=== PATIENT | female | born 1935 | race Caucasian/White ===

== ENCOUNTER 2017-07-19 11:15 | Emergency (ER) | payer MEDICARE, OTHER ==
[2017-07-19] MEDS ORDERED: Sodium Chloride 0.9% 1,000 ML IV ONE (11:30)
--- NOTE | 2017-07-19 11:37 | EDM.PDOC ---
ED HPI GENERAL MEDICAL PROBLEM - General Chief Complaint: Neurological Problem Stated Complaint: weakness Time Seen by Provider: 07/19/17 11:28 Source of Information: Reports: Patient History Limitations: Reports: No Limitations - History of Present Illness INITIAL COMMENTS - FREE TEXT/NARRATIVE: HISTORY AND PHYSICAL: History of present illness: Patient is an 82-year-old female who presents to the emergency room today by ambulance with complaints of dizziness. She states she was using her walker and started to become dizzy as she stood up, states she leaned over to grab onto something and fell onto her knees landing on the floor. She states her was unable to help her to her feet and therefore he called an ambulance for assistance. Patient states she has had dizziness intermittently for "a long time ". Symptoms occur as she is ambulating and subside when she is sitting still. She denies any chest pain, shortness of breath, near-syncope or syncope. Denies any fever or chills. Denies any palpitations, diaphoresis, abdominal pain, nausea, vomiting or diarrhea. Reports that she did not hit her head and currently has no extremity pain. Cervical spine and back were palpated without any discomfort. States she currently has no complaints of "but if I know if I get up I will be dizzy again". Review of systems: As per history of present illness and below otherwise all systems reviewed and negative. Past medical history: As per history of present illness and as reviewed below otherwise noncontributory. Surgical history: As per history of present illness and as reviewed below otherwise noncontributory. Social history: No reported history of drug or alcohol abuse. Family history: As per history of present illness and as reviewed below otherwise noncontributory. Physical exam: General: Nontoxic appearing 82-year-old female. Able to speak in full sentences without shortness of breath. Alert and oriented. HEENT: Atraumatic, normocephalic, pupils reactive, negative for conjunctival pallor or scleral icterus, unable to visualize the tympanic membranes due to cerumen, mucous membranes moist, throat clear, neck supple, nontender, trachea midline. No nystagmus noted. Lungs: Slightly diminished otherwise clear to auscultation, breath sounds equal bilaterally, chest nontender. Heart: S1S2, regular rate and rhythm Abdomen: Soft, nondistended, nontender. Negative for masses or hepatosplenomegaly. Negative for costovertebral tenderness. Pelvis: Stable nontender. Genitourinary: Deferred. Rectal: Deferred. Extremities: Moves all per self without difficulty, all were palpated without tenderness, negative for cords or calf pain. Neurovascular unremarkable. Neuro: Awake, alert, oriented. Cranial nerves II through XII unremarkable. Cerebellum unremarkable. Motor and sensory unremarkable throughout. Exam nonfocal. Patient is currently resting on the cot with her eyes closed, breathes easy. Blood pressure went from 200/90 and is now 153/76. Orthostatic vital signs were reviewed by me. States she still feels somewhat dizzy when ambulating. Patient was up ambulating to the bathroom after receiving her IV fluids. Patient reports that she does feel somewhat improved at this time. All her diagnostic results were reviewed with her. It does appear that she has a UTI, I will treat her with antibiotics. Did encourage her to increase her oral fluids as this may help with her dizziness. Has ear talking about her discharge she mentioned that she had a "tick bite "approximately 3-4 months ago. She states " I wonder if I could have Lyme disease ". I did encourage her to follow-up with her doctor, Dr. Fowler, for follow-up on this as she is unsure of timeframe or if she was actually bitten. Discharge was reviewed and patient is agreeable to plan of care. Denies any further questions at this time. Her is able to drive her home today. Diagnostics: CBC, CMP, troponin, EKG, one view chest, head CT, orthostatic vital signs Therapeutics: IV fluid Impression: Dizziness Urinary tract infection Plan: 1. Please take your antibiotic as prescribed. Increase your fluid intake to prevent dehydration 2. Please mention your concerns of Lyme disease to your primary care provider. 3. Follow-up with your primary care provider in the next 1-2 days. Return to the ED as needed and as discussed Definitive disposition and diagnosis as appropriate pending reevaluation and review of above. Onset: Today Duration: Chronic - Related Data Allergies Allergy/AdvReac Type Severity Reaction Status Date / Time diphenhydramine AdvReac stomach Verified 07/19/17 11:29 [From Benadryl] cramps Home Meds: Home Meds Furosemide 40 mg PO DAILY 01/14/15 [History] Insulin Aspart [NovoLOG] 6 unit SQ ACBREAKFAST 01/14/15 [History] Insulin Aspart [Novolog Flexpen] 8 units SQ ACLUNCH 01/14/15 [History] Insulin Aspart [Novolog Flexpen] 16 units SQ ACDINNER 01/14/15 [History] Insulin Glarg,Human.Rec.Analog [Lantus Solostar] 22 units SQ BEDTIME 01/14/15 [ History] Lisinopril 15 mg PO DAILY 01/14/15 [History] Simvastatin [Zocor] 10 mg PO BEDTIME 01/14/15 [History] Aspirin [Halfprin] 81 mg PO MOWEFR 01/15/15 [History] Levothyroxine Sodium [Synthroid] 100 mcg PO ACBRK 01/15/15 [History] Hydrocodone/Acetaminophen [[place] 5-325 Tablet] 1 each PO Q8H PRN #20 tablet [Rx] Levofloxacin [Levaquin] 500 mg PO Q24H #5 tablet 01/17/15 [Rx] Past Medical History Cardiovascular History: Reports: None Respiratory History: Reports: Asthma, COPD Genitourinary History: Reports: None CARDIAC SURGEON History: Reports: None Musculoskeletal History: Reports: None Psychiatric History: Reports: None Endocrine/Metabolic History: Reports: Diabetes, Type II Dermatologic History: Reports: None - Infectious Disease History Infectious Disease History: Reports: Shingles - Past Surgical History Cardiovascular Surgical History: Reports: None GI Surgical History: Reports: Cholecystectomy Female Surgical History: Reports: None Dermatological Surgical History: Reports: None Social & Family History - Tobacco Use Smoking Status *Q: Current Every Day Smoker Years of Tobacco use: 65 Packs/Tins Daily: 0.5 Second Hand Smoke Exposure: No - Alcohol Use Days Per Week of Alcohol Use: 0 - Recreational Drug Use Recreational Drug Use: No ED ROS GENERAL - Review of Systems Review Of Systems: ROS reveals no pertinent complaints other than HPI. Constitutional: Denies: Fever, Chills, Diaphoresis, Weight Loss Respiratory: Denies: Shortness of Breath Cardiovascular: Denies: Chest Pain, Lightheadedness GI/Abdominal: Denies: Abdominal Pain : Denies: Dysuria Musculoskeletal: Denies: Neck Pain Skin: Denies: Cyanosis, Pallor, Diaphoresis Neurological: Reports: Dizziness. Denies: Confusion, Headache, Seizure, Syncope Psychiatric: Denies: Agitation, Anxiety Hematologic/Lymphatic: Denies: Easy Bleeding, Easy Bruising ED EXAM, GENERAL - Physical Exam Exam: See Below Course - Vital Signs Last Recorded V/S: Last Vital Signs Temp 36.4 C 07/19/17 11:17 Pulse 99 07/19/17 13:52 Resp 20 07/19/17 13:52 BP 157/71 H 07/19/17 13:52 Pulse Ox 95 07/19/17 13:52 Orthostatic Blood Pressure [ 162/74 Standing] Orthostatic Blood Pressure [ 166/75 Sitting] Orthostatic Blood Pressure [ 165/74 Supine] - Orders/Labs/Meds Orders: Active Orders 24 hr Category Date Time Status EKG Documentation Completion [RC] STAT Care 07/19/17 11:30 Active Orthostatic Vital Signs [RC] ASDIRECTED Care 07/19/17 11:31 Active Labs: Laboratory Tests 07/19/17 07/19/17 07/19/17 Range/Units 11:31 11:43 11:43 WBC 5.39 (4.0-11.0) K/uL RBC 3.78 L (4.30-5.90) M/uL Hgb 10.9 L (12.0-16.0) g/dL Hct 34.0 L (36.0-46.0) % MCV 89.9 (80.0-98.0) fL MCH 28.8 (27.0-32.0) pg MCHC 32.1 (31.0-37.0) g/dL RDW Std Deviation 46.2 (28.0-62.0) fl RDW Coeff of Angela 14 (11.0-15.0) % Plt Count 156 (150-400) K/uL MPV 10.50 (7.40-12.00) fL Neut % (Auto) 70.1 (48.0-80.0) % Lymph % (Auto) 17.8 (16.0-40.0) % [place] % (Auto) 6.9 (0.0-15.0) % Eos % (Auto) 3.5 (0.0-7.0) % Baso % (Auto) 1.7 H (0.0-1.5) % Neut # (Auto) 3.8 (1.4-5.7) K/uL Lymph # (Auto) 1.0 (0.6-2.4) K/uL [place] # (Auto) 0.4 (0.0-0.8) K/uL Eos # (Auto) 0.2 (0.0-0.7) K/uL Baso # (Auto) 0.1 (0.0-0.1) K/uL Nucleated RBC % 0.0 /100WBC Nucleated RBCs # 0 K/uL Sodium 137 (136-146) mmol/L Potassium 4.8 (3.5-5.1) mmol/L Chloride 103 (98-110) mmol/L Carbon Dioxide 26 (21-31) mmol/L BUN 41 H (6.0-23.0) mg/dL Creatinine 1.7 H (0.6-1.5) mg/dL Est Cr Clr Drug Dosing TNP Estimated GFR (MDRD) 28.8 ml/min Glucose 99 (60-110) mg/dL Calcium 9.5 (8.8-10.8) mg/dL Total Bilirubin 0.2 (0.1-1.5) mg/dL AST 14 (5-40) IU/L ALT 9 (8-54) IU/L Alkaline Phosphatase 48 (40-150) Troponin I < 0.10 (0.0-0.29) NG/ML Total Protein 7.9 (6.0-8.0) g/dL Albumin 3.9 (3.4-4.8) g/dL Globulin 4.0 H (2.0-3.5) g/dL Albumin/Globulin Ratio 1.0 L (1.3-2.8) TSH 3rd Generation 2.64 (0.47-5.0) uIU/mL Urine Color Urine Appearance Urine pH (5.0-8.0) Ur Specific [place] (1.001-1.035) Urine Protein (NEGATIVE) mg/dL Urine Glucose (UA) (NEGATIVE) mg/dL Urine Ketones (NEGATIVE) mg/dL Urine Occult Blood (NEGATIVE) Urine Nitrite (NEGATIVE) Urine Bilirubin (NEGATIVE) Urine Urobilinogen (<2.0) EU/dL Ur Leukocyte Esterase (NEGATIVE) Urine RBC (0-2/HPF) Urine WBC (0-5/HPF) Ur Epithelial Cells (NONE-FEW) Urine Bacteria (NEGATIVE) 07/19/17 Range/Units 13:29 WBC (4.0-11.0) K/uL RBC (4.30-5.90) M/uL Hgb (12.0-16.0) g/dL Hct (36.0-46.0) % MCV (80.0-98.0) fL MCH (27.0-32.0) pg MCHC (31.0-37.0) g/dL RDW Std Deviation (28.0-62.0) fl RDW Coeff of Angela (11.0-15.0) % Plt Count (150-400) K/uL MPV (7.40-12.00) fL Neut % (Auto) (48.0-80.0) % Lymph % (Auto) (16.0-40.0) % [place] % (Auto) (0.0-15.0) % Eos % (Auto) (0.0-7.0) % Baso % (Auto) (0.0-1.5) % Neut # (Auto) (1.4-5.7) K/uL Lymph # (Auto) (0.6-2.4) K/uL [place] # (Auto) (0.0-0.8) K/uL Eos # (Auto) (0.0-0.7) K/uL Baso # (Auto) (0.0-0.1) K/uL Nucleated RBC % /100WBC Nucleated RBCs # K/uL Sodium (136-146) mmol/L Potassium (3.5-5.1) mmol/L Chloride (98-110) mmol/L Carbon Dioxide (21-31) mmol/L BUN (6.0-23.0) mg/dL Creatinine (0.6-1.5) mg/dL Est Cr Clr Drug Dosing Estimated GFR (MDRD) ml/min Glucose (60-110) mg/dL Calcium (8.8-10.8) mg/dL Total Bilirubin (0.1-1.5) mg/dL AST (5-40) IU/L ALT (8-54) IU/L Alkaline Phosphatase (40-150) Troponin I (0.0-0.29) NG/ML Total Protein (6.0-8.0) g/dL Albumin (3.4-4.8) g/dL Globulin (2.0-3.5) g/dL Albumin/Globulin Ratio (1.3-2.8) TSH 3rd Generation (0.47-5.0) uIU/mL Urine Color YELLOW Urine Appearance CLEAR Urine pH 6.0 (5.0-8.0) Ur Specific [place] 1.010 (1.001-1.035) Urine Protein NEGATIVE (NEGATIVE) mg/dL Urine Glucose (UA) NEGATIVE (NEGATIVE) mg/dL Urine Ketones NEGATIVE (NEGATIVE) mg/dL Urine Occult Blood NEGATIVE (NEGATIVE) Urine Nitrite NEGATIVE (NEGATIVE) Urine Bilirubin NEGATIVE (NEGATIVE) Urine Urobilinogen 0.2 (<2.0) EU/dL Ur Leukocyte Esterase SMALL (NEGATIVE) Urine RBC 0-2 (0-2/HPF) Urine WBC 4-6 (0-5/HPF) Ur Epithelial Cells MODERATE (NONE-FEW) Urine Bacteria FEW (NEGATIVE) Meds: Medications Discontinued Medications Generic Name Dose Route Start Last Admin Trade Name Freq PRN Reason Stop Dose Admin Sodium Chloride 1,000 mls @ 999 mls/hr 07/19/17 11:30 07/19/17 11:48 Normal Saline IV 07/19/17 12:30 999 mls/hr STAT ONE Administration Departure - Departure Time of Disposition: 14:00 Disposition: Home, Self-Care 01 Clinical Impression: Dizziness Urinary tract infection Qualifiers: Urinary tract infection type: site unspecified Hematuria presence: without hematuria Qualified Code(s): N39.0 - Urinary tract infection, site not specified - Discharge Information Referrals: PCP,None [Primary Care Provider] - Forms: ED Department Discharge Additional Instructions: My general discharge The following information is given to patients seen in the emergency department who are being discharged to home. This information is to outline your options for follow-up care. We provide all patients seen in our emergency department with a follow-up referral. The need for follow-up, as well as the timing and circumstances, are variable depending upon the specifics of your emergency department visit. If you don't have a primary care physician on staff, we will provide you with a referral. We always advise you to contact your personal physician following an emergency department visit to inform them of the circumstance of the visit and for follow-up with them and/or the need for any referrals to a consulting specialist. The emergency department will also refer you to a specialist when appropriate. This referral assures that you have the opportunity for follow-up care with a specialist. All of these measure are taken in an effort to provide you with optimal care, which includes your follow-up. Under all circumstances we always encourage you to contact your private physician who remains a resource for coordinating your care. When calling for follow-up care, please make the office aware that this follow-up is from your recent emergency room visit. If for any reason you are refused follow-up, please contact the [facility] Emergency Department at and asked to speak to the emergency department charge nurse. [facility] [address] [place] [address] 1. Please take your antibiotic as prescribed. Increase your fluid intake to prevent dehydration 2. Please mention your concerns of Lyme disease to your primary care provider. 3. Follow-up with your primary care provider in the next 1-2 days. Return to the ED as needed and as discussed - My Orders Last 24 Hours: My Active Orders 07/19/17 11:30 EKG Documentation Completion [RC] STAT 07/19/17 11:31 Orthostatic Vital Signs [RC] ASDIRECTED - Assessment/Plan Last 24 Hours: My Active Orders 07/19/17 11:30 EKG Documentation Completion [RC] STAT 07/19/17 11:31 Orthostatic Vital Signs [RC] ASDIRECTED
--- NOTE | 2017-07-19 11:55 | CR ---
EXAMINATION: Portable chest radiograph. HISTORY: Fall. FINDINGS: The trachea is midline. The cardiomediastinal silhouette is within normal limits. No pulmonary infilt rates, effusions or pneumothorax. Osseous structures appear unremarkable. IMPRESSION: No acute cardiopulmonary process.
[2017-07-19 12:34] LABS: CHLORIDE,CL 103 mmol/L (98-110); SODIUM,NA 137 mmol/L (136-146)
--- NOTE | 2017-07-19 13:17 | CT ---
EXAM DATE: 07/19/17 PATIENT'S AGE: 82 Patient: CASPER ARANGO Facility: [place], [place] Site . Site : 1935 Study: CT Head [id number] 12:09:09 PM Ordering Physician: Doctor Botello Final Report: INDICATION: Dizziness COMPARISON: none TECHNIQUE: A CT volumetric acquisition was performed of the brain without IV contrast. FINDINGS: There is no evidence of a subdural or epidural hematoma. There is no evidence of subarachnoid hemorrhage or intraparenchymal bleeding. The CT images reveal a normal appearance of the cerebral ventricles and basal cisterns. There is no evidence of localized tissue infarction or mass effect. There is normal [place]za white matter differentiation. The mastoid air cells and middle ear cavities are clear. The internal auditory canals appear normal in size and have a symmetric appearance. There is normal appearance of the cochlear, vestibule and semicircular canals. The calvarium appears intact. There is normal aeration of the visualized paranasal sinuses. IMPRESSION: Negative head CT. Please note that all CT scans at this facility use dose modulation, iterative reconstruction, and/or weight-based dosing when appropriate to reduce radiation dose to as low as reasonably achievable. Dictated by Alden Murillo MD @ Jul 19 2017 12:30PM (Electronic Signature) Report Signed by Proxy. SHAY
[2017-07-19 13:55] VITALS: BP 157/71
== END 2017-07-19 14:20 | disposition home or self-care (01) ==
LOC: MW.ED 11:15
DX: R42 Dizziness and giddiness (principal); N39.0 Urinary tract infection, site not specified; E11.9 Type 2 diabetes mellitus without complications; Z79.4 Long term (current) use of insulin; F17.210 Nicotine dependence, cigarettes, uncomplicated
CPT/HCPCS: 36415; 70450; 71010; 80053; 81001; 84443; 84484; 85025; 93005; 96360; 96361; 99285; J7040; 99284

== ENCOUNTER 2019-10-21 17:50 | Emergency (ER) | payer MEDICARE, OTHER ==
[2019-10-21] MEDS ORDERED: Sodium Chloride 0.9% 1,000 ML IV ONE (18:25)
--- NOTE | 2019-10-21 18:38 | EDM.PDOC ---
ED HPI GENERAL MEDICAL PROBLEM - General Chief Complaint: General Stated Complaint: SICK Time Seen by Provider: 10/21/19 18:16 Source of Information: Reports: Patient History Limitations: Reports: No Limitations - History of Present Illness INITIAL COMMENTS - FREE TEXT/NARRATIVE: HISTORY AND PHYSICAL: History of present illness: Patient is an 84-year-old female who presents to the ED today with concern of an episode of low blood pressure that happened when she was at the clinic today. Patient's states he thinks her blood pressure was 80 but is unsure of the bottom number. Patient states she was told by the clinic to come to the ED immediately. Patient states her only complaint today is some lower abdominal pain. Patient states she was at the clinic for routine lab work for her diabetes. Patient denies fever, chills, chest pain, shortness of breath, or cough. Denies headache, neck stiff ness, change in vision, syncope, or near syncope. Denies nausea, vomiting, abdominal pain, diarrhea, constipation, or dysuria. Has not noted any blood in urine or stool. Patient has been eating and drinking appropriately. Review of systems: As per history of present illness and below otherwise all systems reviewed and negative. Past medical history: As per history of present illness and as reviewed below otherwise noncontributory. Surgical history: As per history of present illness and as reviewed below otherwise noncontributory. Social history: See social history for further information Family history: As per history of present illness and as reviewed below otherwise noncontributory. Physical exam: General: Patient is alert, oriented, and in no acute distress. Patient sitting comfortably on exam table. HEENT: Atraumatic, normocephalic, pupils equal and reactive bilaterally, negative for conjunctival pallor or scleral icterus, mucous membranes moist, TMs normal bilaterally, throat clear, neck supple, nontender, trachea midline. No drooling or trismus noted. No meningeal signs. No hot potato voice noted. Lungs: Clear to auscultation, breath sounds equal bilaterally, chest nontender. Heart: S1S2, regular rate and rhythm without overt murmur Abdomen: Soft, nondistended, nontender. Negative for masses or hepatosplenomegaly. Negative for costovertebral tenderness. Pelvis: Stable nontender. Genitourinary: Deferred. Rectal: Deferred. Skin: Intact, warm, dry. No lesions or rashes noted. Extremities: Atraumatic, negative for cords or calf pain. Neurovascular unremarkable. Neuro: Awake, alert, oriented. Cranial nerves II through XII unremarkable. Cerebellum unremarkable. Motor and sensory unremarkable throughout. Exam nonfocal. Notes: Patient does not have any chest pain here in the ED and states she has not had any chest pain. EKG shows sinus rhythm with no acute changes. Did have a thorough discussion with patient about code status and at this time she does desire to be full code including CPR/Intubation/Shocking if necessary. Dr. Reyes, [facility], consulted on patient and accepting of transfer. EMS arranged. Voices understanding and is agreeable to plan of care. Denies any further questions or concerns at this time. Diagnostics: EKG x 2, CBC, CMP, UA, CXR, Trop, orthostatic vitals, lipase, VBG, blood ketone Therapeutics: NS, ASA, nitropaste Impression: Elevated troponin Abnormal renal function Plan: Transfer to [facility] to Dr. Reyes via EMS Definitive disposition and diagnosis as appropriate pending reevaluation and review of above. - Related Data Allergies Allergy/AdvReac Type Severity Reaction Status Date / Time diphenhydramine AdvReac stomach Verified 10/21/19 17:54 [From Benadryl] cramps Home Meds: Home Meds Furosemide 40 mg PO DAILY 01/14/15 [History] Insulin Aspart [NovoLOG] 6 unit SQ ACBREAKFAST 01/14/15 [History] Insulin Aspart [Novolog Flexpen] 8 units SQ ACLUNCH 01/14/15 [History] Insulin Aspart [Novolog Flexpen] 16 units SQ ACDINNER 01/14/15 [History] Insulin Glarg,Human.Rec.Analog [Lantus Solostar] 22 units SQ BEDTIME 01/14/15 [ History] Lisinopril 15 mg PO DAILY 01/14/15 [History] Simvastatin [Zocor] 10 mg PO BEDTIME 01/14/15 [History] Aspirin [Halfprin] 81 mg PO MOWEFR 01/15/15 [History] Levothyroxine Sodium [Synthroid] 100 mcg PO ACBRK 01/15/15 [History] Hydrocodone/Acetaminophen [Coleman 5-325 Tablet] 1 each PO Q8H PRN #20 tablet [Rx] Levofloxacin [Levaquin] 500 mg PO Q24H #5 tablet 01/17/15 [Rx] Nitrofurantoin Barbour/Macrocryst [Macrobid] 100 mg PO BID 7 Days #14 cap 07/19/17 [Rx] Past Medical History HEENT History: Reports: Impaired Vision Cardiovascular History: Reports: None Respiratory History: Reports: Asthma, COPD Gastrointestinal History: Reports: None Genitourinary History: Reports: None 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 Musculoskeletal History: Reports: None Neurological History: Reports: None Psychiatric History: Reports: None Endocrine/Metabolic History: Reports: Diabetes, Type II Hematologic History: Reports: None Immunologic History: Reports: None Oncologic (Cancer) History: Reports: None Dermatologic History: Reports: None - Infectious Disease History Infectious Disease History: Reports: None - Past Surgical History Head Surgeries/Procedures: Reports: None HEENT Surgical History: Reports: None Cardiovascular Surgical History: Reports: None Respiratory Surgical History: Reports: None GI Surgical History: Reports: Cholecystectomy Female Surgical History: Reports: None Endocrine Surgical History: Reports: None Neurological Surgical History: Reports: None Musculoskeletal Surgical History: Reports: None Oncologic Surgical History: Reports: None Dermatological Surgical History: Reports: None Social & Family History - Family History Family Medical History: Noncontributory - Tobacco Use Smoking Status *Q: Current Every Day Smoker Years of Tobacco use: 72 Packs/Tins Daily: 0.7 - Caffeine Use Caffeine Use: Reports: Coffee - Recreational Drug Use Recreational Drug Use: No ED ROS GENERAL - Review of Systems Review Of Systems: Comprehensive ROS is negative, except as noted in HPI. ED EXAM, GENERAL - Physical Exam Exam: See Below (see dictation) Course - Vital Signs Last Recorded V/S: Last Vital Signs Temp 98.1 F 10/21/19 17:54 Pulse 99 10/21/19 18:11 Resp 20 10/21/19 18:11 BP 118/57 L 10/21/19 18:11 Pulse Ox 96 10/21/19 18:11 Orthostatic Blood Pressure [ 102/42 Standing] Orthostatic Blood Pressure [ 121/43 Sitting] Orthostatic Blood Pressure [ 107/50 Supine] - Orders/Labs/Meds Orders: Active Orders 24 hr Category Date Time Status EKG 12 Lead [EKG Documentation Completion] [RC] STAT Care 10/21/19 18:00 Active EKG Documentation Completion [RC] STAT Care 10/21/19 19:37 Active Glucose [Blood Glucose Check, Bedside] [RC] ONETIME Care 10/21/19 18:29 Active Orthostatic Vital Signs [RC] ASDIRECTED Care 10/21/19 18:26 Active UA RFX FRANSISCO AND CULT IF INDIC [URIN] Stat Lab 10/21/19 18:25 Ordered Labs: Laboratory Tests 10/21/19 10/21/19 10/21/19 Range/Units 17:40 17:40 17:40 WBC 13.55 H (4.0-11.0) K/uL RBC 3.63 L (4.30-5.90) M/uL Hgb 11.3 L (12.0-16.0) g/dL Hct 34.1 L (36.0-46.0) % MCV 93.9 (80.0-98.0) fL MCH 31.1 (27.0-32.0) pg MCHC 33.1 (31.0-37.0) g/dL RDW Std Deviation 46.8 (28.0-62.0) fl RDW Coeff of Agnela 14 (11.0-15.0) % Plt Count 173 (150-400) K/uL MPV 11.40 (7.40-12.00) fL Neut % (Auto) 84.4 H (48.0-80.0) % Lymph % (Auto) 3.3 L (16.0-40.0) % Barbour % (Auto) 12.0 (0.0-15.0) % Eos % (Auto) 0.1 (0.0-7.0) % Baso % (Auto) 0.2 (0.0-1.5) % Neut # (Auto) 11.4 H (1.4-5.7) K/uL Lymph # (Auto) 0.5 L (0.6-2.4) K/uL Barbour # (Auto) 1.6 H (0.0-0.8) K/uL Eos # (Auto) 0.0 (0.0-0.7) K/uL Baso # (Auto) 0.0 (0.0-0.1) K/uL Nucleated RBC % 0.0 /100WBC Nucleated RBCs # 0 K/uL VBG pH (7.31-7.41) VBG pCO2 (35-45) mmHG VBG pO2 (30-40) mmHG VBG HCO3 (22-30) mEq/L VBG Total CO2 (41-51) mmol/L VBG Base Excess (-3.0-3.0) Sodium 133 L (136-145) mmol/L Potassium 4.2 (3.5-5.1) mmol/L Chloride 97 L (98-107) mmol/L Carbon Dioxide 21.8 (21.0-32.0) mmol/L BUN 58 H (7.0-18.0) mg/dL Creatinine 2.9 H (0.6-1.0) mg/dL Est Cr Clr Drug Dosing 12.99 mL/min Estimated GFR (MDRD) 15.5 ml/min Glucose 287 H (74-106) mg/dL Calcium 9.7 (8.5-10.1) mg/dL Total Bilirubin 0.5 (0.2-1.0) mg/dL AST 12 L (15-37) IU/L ALT 19 (14-63) IU/L Alkaline Phosphatase 80 (46-116) U/L Troponin I 0.172 H* (0.000-0.056) ng/mL Total Protein 8.3 H (6.4-8.2) g/dL Albumin 3.3 L (3.4-5.0) g/dL Globulin 5.0 H (2.6-4.0) g/dL Albumin/Globulin Ratio 0.7 L (0.9-1.6) Lipase 49 L (73-393) U/L Ketones NEGATIVE (NEG) 10/21/19 Range/Units 20:11 WBC (4.0-11.0) K/uL RBC (4.30-5.90) M/uL Hgb (12.0-16.0) g/dL Hct (36.0-46.0) % MCV (80.0-98.0) fL MCH (27.0-32.0) pg MCHC (31.0-37.0) g/dL RDW Std Deviation (28.0-62.0) fl RDW Coeff of Angela (11.0-15.0) % Plt Count (150-400) K/uL MPV (7.40-12.00) fL Neut % (Auto) (48.0-80.0) % Lymph % (Auto) (16.0-40.0) % Barbour % (Auto) (0.0-15.0) % Eos % (Auto) (0.0-7.0) % Baso % (Auto) (0.0-1.5) % Neut # (Auto) (1.4-5.7) K/uL Lymph # (Auto) (0.6-2.4) K/uL Barbour # (Auto) (0.0-0.8) K/uL Eos # (Auto) (0.0-0.7) K/uL Baso # (Auto) (0.0-0.1) K/uL Nucleated RBC % /100WBC Nucleated RBCs # K/uL VBG pH 7.30 L (7.31-7.41) VBG pCO2 44 (35-45) mmHG VBG pO2 32 (30-40) mmHG VBG HCO3 21 L (22-30) mEq/L VBG Total CO2 20 L (41-51) mmol/L VBG Base Excess -5.0 L (-3.0-3.0) Sodium (136-145) mmol/L Potassium (3.5-5.1) mmol/L Chloride (98-107) mmol/L Carbon Dioxide (21.0-32.0) mmol/L BUN (7.0-18.0) mg/dL Creatinine (0.6-1.0) mg/dL Est Cr Clr Drug Dosing mL/min Estimated GFR (MDRD) ml/min Glucose (74-106) mg/dL Calcium (8.5-10.1) mg/dL Total Bilirubin (0.2-1.0) mg/dL AST (15-37) IU/L ALT (14-63) IU/L Alkaline Phosphatase (46-116) U/L Troponin I (0.000-0.056) ng/mL Total Protein (6.4-8.2) g/dL Albumin (3.4-5.0) g/dL Globulin (2.6-4.0) g/dL Albumin/Globulin Ratio (0.9-1.6) Lipase (73-393) U/L Ketones (NEG) Meds: Medications Discontinued Medications Generic Name Dose Route Start Last Admin Trade Name Ajay PRN Reason Stop Dose Admin Aspirin 324 mg 10/21/19 19:56 Aspirin PO 10/21/19 19:57 ONETIME ONE Sodium Chloride 1,000 mls @ 500 mls/hr 10/21/19 18:25 10/21/19 18:54 Normal Saline IV 10/21/19 20:24 500 mls/hr BOLUS ONE Administration Nitroglycerin 0.5 gm 10/21/19 20:26 Nitro-Bid 2% TOP 10/21/19 20:27 ONETIME ONE Departure - Departure Time of Disposition: 20:31 Disposition: DC/Tfer to Acute Hospital 02 Clinical Impression: Elevated troponin, Abnormal renal function - Discharge Information Referrals: Kathy Talbert DO [Primary Care Provider] - Forms: ED Department Discharge Sepsis Event Note - Evaluation Sepsis Screening Result: No Definite Risk - Focused Exam Vital Signs: Vital Signs Temp Pulse Resp BP Pulse Ox 10/21/19 18:11 99 20 118/57 L 96 10/21/19 17:54 98.1 F 115 H 18 125/80 95 Date Exam was Performed: 10/21/19 Time Exam was Performed: 20:32 - My Orders Last 24 Hours: My Active Orders 10/21/19 18:25 UA RFX FRANSISCO AND CULT IF INDIC [URIN] Stat 10/21/19 18:26 Orthostatic Vital Signs [RC] ASDIRECTED 10/21/19 18:29 Glucose [Blood Glucose Check, Bedside] [RC] ONETIME 10/21/19 19:37 EKG Documentation Completion [RC] STAT - Assessment/Plan Last 24 Hours: My Active Orders 10/21/19 18:25 UA RFX FRANSISCO AND CULT IF INDIC [URIN] Stat 10/21/19 18:26 Orthostatic Vital Signs [RC] ASDIRECTED 10/21/19 18:29 Glucose [Blood Glucose Check, Bedside] [RC] ONETIME 10/21/19 19:37 EKG Documentation Completion [RC] STAT
[2019-10-21 18:51] LABS: CARBON DIOXIDE,CO2 21.8 mmol/L (21.0-32.0); POTASSIUM,K 4.2 mmol/L (3.5-5.1)
--- NOTE | 2019-10-21 19:06 | CR ---
Chest: Portable view of the chest was obtained. Comparison: Prior chest x-ray of 07/19/17. Tortuous thoracic aorta is seen. Mild scoliosis is noted within the spine. Small hiatal hernia is seen. Heart size at the upper limits of normal. Nodule noted within the right lung base. This is felt to be present on the prior exam and is stable. No acute parenchymal change is seen. Impression: 1. Findings as noted above. 2. Nothing acute is definitely appreciated. Diagnostic code #2 Study was dictated in [place] Standard Time
[2019-10-21] MEDS ORDERED: Aspirin 81 MG Tab.Chew PO ONE (19:56)
[2019-10-21] MEDS ORDERED: Nitroglycerin 2% Oint 1 GM UD Packet TOP ONE (20:26)
[2019-10-22 02:12] VITALS: BP 132/64; PULSE 103
== END 2019-10-22 00:30 ==
LOC: MW.ED 17:50
DX: R79.89 Other specified abnormal findings of blood chemistry (principal); R94.4 Abnormal results of kidney function studies; E11.9 Type 2 diabetes mellitus without complications; J44.9 Chronic obstructive pulmonary disease, unspecified; F17.210 Nicotine dependence, cigarettes, uncomplicated; Z88.8 Allergy status to other drugs, medicaments and biological substances; Z79.4 Long term (current) use of insulin; Z79.82 Long term (current) use of aspirin
CPT/HCPCS: 71045; 80053; 81001; 82009; 82803; 83690; 84484; 85025; 93005; 96360; 96361; 99285; A9270; J7030; 99284